=== PATIENT | female | born 1995 | race Caucasian/White ===

== ENCOUNTER 2018-08-06 05:56 | Day surgery (SDC) | payer OTHER ==
[~2018-08-06] VITALS: Ht 149.9 cm; Wt 91.3 kg
[~2018-08-06 05:56] MED LIST: None per pt
[2018-08-06 06:17] VITALS: BP 122/85
[2018-08-06] MEDS ORDERED: LACTATED RINGERS 1,000 ML IV SCH (06:20)
[2018-08-06] MEDS ORDERED: FENTANYL PF 100 MCG/2ML ONE ×3 (06:45→08:31)
[2018-08-06] MEDS ORDERED: MIDAZOLAM 1 MG/ML, 2ML ONE (06:45)
[2018-08-06 06:55] LABS: HCG UR SG 1.035 (1.003-1.030)
[2018-08-06] MEDS ORDERED: SCOPOLAMINE PATCH, 1.5MG PATCH.TD72 TD ONE (06:58)
[2018-08-06] MEDS ORDERED: ONDANSETRON 2MG/ML, 2ML ONE (07:02)
[2018-08-06] MEDS ORDERED: DEXAMETHASONE 4 MG/ML, 1ML ONE (07:02)
[2018-08-06] MEDS ORDERED: SUCCINYLCHOLINE 20 MG/ML, 10ML ONE (07:02)
[2018-08-06] MEDS ORDERED: PROPOFOL 10 MG/ML, 20ML ONE (07:02)
[2018-08-06] MEDS ORDERED: MEPERIDINE/PF 25MG/0.5ML IVPush PRN (07:30)
[2018-08-06] MEDS ORDERED: hydrALAzine 20 MG/ML, 1ML IV PRN (07:30)
[2018-08-06] MEDS ORDERED: HYDROmorphone 2 MG/ML, 1ML IVPush PRN (07:30)
[2018-08-06] MEDS ORDERED: ACETAMINOPHEN 325 MG TABLET PO PRN (07:30)
[2018-08-06] MEDS ORDERED: PROMETHAZINE 25 MG/ML, 1ML IV PRN (07:30)
[2018-08-06] MEDS ORDERED: KETOROLAC 30 MG/1 ML IV PRN (07:30)
[2018-08-06] MEDS ORDERED: DIAZEPAM 5 MG/ML, 2ML IVPush PRN (07:30)
[2018-08-06] MEDS ORDERED: OXYcodone 5 MG/5 ML ORAL.SOL UDC PO PRN (07:30)
[2018-08-06] MEDS ORDERED: ALBUTEROL SULFATE 2.5 MG/3 ML NPPB PRN (07:30)
[2018-08-06] MEDS ORDERED: LABETALOL 5MG/ML, 20ML IV PRN (07:30)
[2018-08-06] MEDS ORDERED: ACETAMINOPHEN 650 MG/20.3 ML UDC ONE (08:04)
[2018-08-06] MEDS ORDERED: OXYcodone 5 MG/5 ML ORAL.SOL UDC ONE (08:05)
[2018-08-06] MEDS: FENTANYL PF 100 MCG/2ML IV PRN ×4 (08:15→08:45)
[2018-08-06] MEDS ORDERED: DIPHENHYDRAMINE 50 MG/ML, 1ML IVPush ONE (10:00)
== END 2018-08-06 12:35 | disposition home or self-care (01) ==
LOC: OUT 05:56
PROVIDERS: ATTEND Surgery
DX: E04.1 Nontoxic single thyroid nodule (principal); Z98.890 Other specified postprocedural states
CPT/HCPCS: 60220; 81025; 88307; C1760; J0330; J1100; J1200; J1885; J2250; J2405; J2704; J3010; J7120

== ENCOUNTER → 2019-08-17 | Outpatient (CLI) | payer OTHER, MEDICAID ==
[~2019-08-17] MED LIST changes: +HYDR50TA99 PO
== END | disposition home or self-care (01) ==
LOC: STAR 08:44
PROVIDERS: ATTEND Surgery
DX: Z01.818 Encounter for other preprocedural examination (principal)
CPT/HCPCS: 36415; 84432; 86800

== ENCOUNTER → 2019-12-27 | Outpatient (CLI) | payer OTHER, MEDICAID ==
[~2019-12-27] MED LIST changes: +CALC400T6 PO; +CITA20TA6 PO
== END | disposition home or self-care (01) ==
LOC: STAR 15:11
PROVIDERS: ATTEND Surgery
DX: Z01.818 Encounter for other preprocedural examination (principal)
CPT/HCPCS: 36415; 84432; 86800

== ENCOUNTER 2020-01-07 06:25 | Inpatient (IN) | payer OTHER, MEDICAID ==
[~2020-01-07] VITALS: Ht 149.9 cm; Wt 99.9 kg
[2020-01-07] MEDS ORDERED: LACTATED RINGERS 1,000 ML IV SCH ×2 (07:01→12:00)
[2020-01-07 07:05] VITALS: BP 130/98
[2020-01-07 07:11] LABS: HCG UR SG 1.025 (1.003-1.030)
[2020-01-07] MEDS ORDERED: CHLORHEXIDINE 15 ML UDC MM ONE (07:30)
[2020-01-07] MEDS ORDERED: BUPIVACAINE/PF-EPI 0.25% 1:200K ONE (08:10)
[2020-01-07] MEDS ORDERED: FENTANYL PF 100 MCG/2ML ONE ×2 (08:19→09:19)
[2020-01-07] MEDS ORDERED: MIDAZOLAM 1 MG/ML, 2ML ONE (08:19)
[2020-01-07] MEDS ORDERED: GLYCOPYRROLATE 0.2MG/1ML, 5ML ONE (08:26)
[2020-01-07] MEDS ORDERED: PROPOFOL 10 MG/ML, 20ML ONE (08:26)
[2020-01-07] MEDS ORDERED: CEFAZOLIN 1,000 MG ONE (08:26)
[2020-01-07] MEDS ORDERED: DEXAMETHASONE 4 MG/ML, 1ML ONE (08:26)
[2020-01-07] MEDS ORDERED: ONDANSETRON 2MG/ML, 2ML ONE (08:26)
[2020-01-07] MEDS ORDERED: ROCURONIUM 10MG/ML,5ML ONE (08:26)
[2020-01-07] MEDS ORDERED: SUCCINYLCHOLINE 20 MG/ML, 10ML ONE ×2 (08:26)
[2020-01-07] MEDS ORDERED: NEOSTIGMINE 1 MG/ML, 10ML ONE (08:26)
[2020-01-07] MEDS ORDERED: ALBUTEROL SULFATE 2.5 MG/3 ML NPPB PRN (09:00)
[2020-01-07] MEDS ORDERED: ACETAMINOPHEN 325 MG TABLET PO PRN (09:00)
[2020-01-07] MEDS ORDERED: DIAZEPAM 5 MG/ML, 2ML IVPush PRN (09:00)
[2020-01-07] MEDS ORDERED: KETOROLAC 30 MG/1 ML IV PRN (09:00)
[2020-01-07] MEDS ORDERED: MEPERIDINE/PF 25MG/0.5ML IVPush PRN (09:00)
[2020-01-07] MEDS ORDERED: LABETALOL 5MG/ML, 20ML IV PRN (09:00)
[2020-01-07] MEDS ORDERED: HYDROmorphone 2 MG/ML, 1ML IVPush PRN (09:00)
[2020-01-07] MEDS ORDERED: PROMETHAZINE 25 MG/ML, 1ML IV PRN (09:00)
[2020-01-07] MEDS ORDERED: OXYcodone 5 MG/5 ML ORAL.SOL UDC PO PRN (09:00)
[2020-01-07] MEDS ORDERED: hydrALAzine 20 MG/ML, 1ML IV PRN (09:00)
[2020-01-07] MEDS ORDERED: FENTANYL PF 100 MCG/2ML IV PRN (09:00)
[2020-01-07] MEDS ORDERED: KETOROLAC 30 MG/1 ML ONE (09:19)
[2020-01-07] MEDS ORDERED: ACETAMINOPHEN 650 MG/20.3 ML UDC ONE (09:35)
[2020-01-07] MEDS ORDERED: OXYcodone 5 MG/5 ML ORAL.SOL UDC ONE (09:36)
[2020-01-07 10:26] VITALS: BP 119/64
[2020-01-07] MEDS ORDERED: HYDROcodone/APAP 5/325 TABLET PO PRN (12:00)
[2020-01-07] MEDS ORDERED: ONDANSETRON 2MG/ML, 2ML IV PRN (12:00)
[2020-01-07 12:16] LABS: ALBUMIN 3.6 g/dL (3.4-5.0); CALCIUM 8.8 mg/dL (8.5-10.1)
[2020-01-07 12:56] VITALS: BP 131/75
[2020-01-07 17:59] LABS: ALBUMIN 3.5 g/dL (3.4-5.0); CALCIUM 8.7 mg/dL (8.5-10.1)
[2020-01-07] MEDS ORDERED: HYDR-3240 PO (18:19)
[2020-01-07] MEDS ORDERED: LEVO125T PO (18:22)
[2020-01-07 19:55] VITALS: BP 123/75
[2020-01-08] MEDS ORDERED: CITALOPRAM 20 MG TABLET PO SCH (09:00)
== END 2020-01-07 21:30 | disposition home or self-care (01) | DRG 627 ==
LOC: OUT 06:25 → 4NE 10:18 → OUT 10:26 → 4NE 10:27
PROVIDERS: ADMIT Surgery; ATTEND Surgery
PROC: 0GTH0ZZ Resection of Right Thyroid Gland Lobe, Open Approach (ICD-10-PCS; principal; 2020-01-07 08:30)
DX: E04.2 Nontoxic multinodular goiter (principal); E89.0 Postprocedural hypothyroidism
CPT/HCPCS: 36415; 81025; 82040; 82310; 87635; 88307; G0378; J0690; J1100; J1885; J2250; J2405; J2704; J2710; J3010; C1760; J0330; J7120